=== PATIENT | female | born 1980 | race Caucasian/White ===

== ENCOUNTER 2022-05-18 00:34 | Emergency (ER) | payer OTHER, SELFPAY ==
[2022-05-18 00:32] VITALS: BP 116/85; PULSE 66; RESP 20; TEMP 35.7; O2SAT 100
--- NOTE | 2022-05-18 00:37 | ED.GENADULT ---
HPI - General Adult General Chief complaint: Syncope Stated complaint: SYNCOPE, ETOH, N/V History of Present Illness HPI narrative: 41-year-old female brought in by EMS. She was picked up at a local bar and noted to be on the bathroom floor in which she been having episodes of emesis. She appears to be highly intoxicated. There was a friend there who states that she had had several alcoholic drinks but was just drinking socially. She did not feel like she had drank enough to be at this level. Patient is able to arouse with us but not really answer many questions she just keeps stating I do not know what happened . She denies any physical trauma. Related Data Allergies Allergy/AdvReac Type Severity Reaction Status Date / Time No Known Allergies Allergy Verified 05/18/22 00:52 Review of Systems Review of Systems: ROS unobtainable: Yes other (Alcohol intoxication) [facility] Past Medical History Medical History No pertinent past medical history Family History Family History Father Hypertension Grandparent Family history of primary malignant neoplasm of liver Family history of heart disease in male family member before age 55 Social History Social History Smoking status: Never smoker Alcohol intake: current Exam Narrative: APPEARANCE: Strong smell of alcohol. Head Normocephalic and atraumatic. EYES: PERRLA/EOMI, conjunctivae clear. NOSE: Normal with no drainage EARS:TMS clear with Bales, with good light reflex. THROAT: Pharynx clear, no exudate. NECK: Supple. No adenopathy, no masses. RESPIRATORY: Airway patent, respirations nonlabored. Clear to auscultation bilaterally, no rales, rhonchi, wheezing. CARDIOVASCULAR: Regular rate and rhythm without murmurs, rubs, or gallops. ABDOMINAL: Soft, nontender, nondistended, no hepatosplenomegaly Musculoskeletal: Moves all extremities. Strength/ROM intact, No edema, No calf tenderness. NEURO: Nonfocal examination. SKIN:: Warm, dry. Normal Color PSYCHIATRIC: Depressed affect Course Vital Signs Vital signs: Vital Signs Temperature 96.3 F L 05/18/22 00:32 Pulse Rate 66 05/18/22 00:32 Respiratory Rate 20 05/18/22 00:32 Blood Pressure 116/85 05/18/22 00:32 Pulse Oximetry 100 05/18/22 00:32 Oxygen Delivery Room Air 05/18/22 00:32 Temperature 96.3 F L 05/18/22 00:32 Pulse Rate 67 05/18/22 01:15 Respiratory Rate 20 05/18/22 00:32 Blood Pressure 117/83 05/18/22 01:15 Pulse Oximetry 100 05/18/22 01:15 Oxygen Delivery Room Air 05/18/22 00:32 Medical Decision Making MDM Narrative Medical decision making narrative: Alcohol level came back at 220 mg/dL. Tox screen was noted to be negative. Patient's parents are here at this time. She is a lot more alert. She states that she did not feel like she drank that much alcohol tonight. She can safely be discharged at this time back to her home with her parents. I did explain to them that it we cannot test for drugs such as ketamine. However she states that she would not around any men and there was no man there hitting on her. Vital Signs Vital Signs: Vital Signs Temperature 96.3 F L 05/18/22 00:32 Pulse Rate 66 05/18/22 00:32 Respiratory Rate 20 05/18/22 00:32 Blood Pressure 116/85 05/18/22 00:32 Pulse Oximetry 100 05/18/22 00:32 Oxygen Delivery Room Air 05/18/22 00:32 Temperature 96.3 F L 05/18/22 00:32 Pulse Rate 67 05/18/22 01:15 Respiratory Rate 20 05/18/22 00:32 Blood Pressure 117/83 05/18/22 01:15 Pulse Oximetry 100 05/18/22 01:15 Oxygen Delivery Room Air 05/18/22 00:32 Lab Data Labs: Lab Results 05/18/22 05/18/22 Range/Units 00:49 00:49 Urine Opiates Screen Negative (Negative) Urine Methadone Screen Negative (Negative) Ur Barbiturates Screen N
[2022-05-18] MEDS: SODIUM CHLORIDE 0.9% IV 1,000 ML 999 ML IV CONT (00:54)
[2022-05-18 01:08] LABS: Ethanol 220 mg/dL (<10)
[2022-05-18 01:15] VITALS: BP 117/83; PULSE 67; O2SAT 100
[2022-05-18 01:15] LABS: Amphetamine Screen Urine Negative (Negative); Barbiturate Screen Urine Negative (Negative); Benzodiazepines Screen Urine Negative (Negative); Cannabinoid Screen Urine Negative (Negative); Cocaine Screen Urine Negative (Negative); Methadone Screen Urine Negative (Negative); Opiate Screen Urine Negative (Negative); Phencyclidine Screen Urine Negative (Negative)
[2022-05-18 01:53] VITALS: BP 120/83; PULSE 70; RESP 20; O2SAT 99
== END 2022-05-18 01:56 | disposition home or self-care (01) ==
PROVIDERS: Emergency Provider Emergency Medicine
DX: F10.129 Alcohol abuse with intoxication, unspecified (principal); Y90.7 Blood alcohol level of 200-239 mg/100 ml
CPT/HCPCS: 36415; 80307; 96360; 99283; J7030

== ENCOUNTER 2022-09-24 16:01 | Emergency (ER) | payer OTHER, SELFPAY ==
[2022-09-24 16:31] VITALS: BP 113/66; PULSE 89; RESP 18; TEMP 36.8; O2SAT 100
[2022-09-24 16:32] VITALS: BP 113/66; PULSE 89; RESP 18; TEMP 36.8; O2SAT 100
--- NOTE | 2022-09-24 16:47 | ED.URI ---
HPI - URI/Sore Throat General Chief Complaint: Upper Respiratory Infection Stated Complaint: sorethroat,headache Time Seen by Provider: 09/24/22 16:47 Source: patient and RN notes reviewed Mode of arrival: ambulatory Limitations: no limitations History of Present Illness HPI Narrative: 42-year-old female presented for complaint sore throat, body aches, subjective fever over the last 3 days. 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 She states she had influenza at the end of August. She also states the symptoms are similar to when she has had strep throat in the past. She denies shortness of breath, wheezing, nausea vomiting, diarrhea. She has taken Tylenol for symptoms. MD elicited complaint: cough Related Data Home Medications Medication Instructions Recorded Confirmed escitalopram oxalate 10 mg tablet 10 mg PO DAILY 09/24/22 09/24/22 gabapentin 100 mg capsule 100 mg PO DAILY 09/24/22 09/24/22 linaclotide 145 mcg capsule 145 mcg PO DAILY 09/24/22 09/24/22 (Linzess) rimegepant 75 mg disintegrating 75 mg PO PRN PRN Migraine Headache 09/24/22 09/24/22 tablet (Nurtec ODT) Allergies Allergy/AdvReac Type Severity Reaction Status Date / Time No Known Allergies Allergy Verified 09/24/22 16:31 Review of Systems Review of Systems: ROS per HPI [facility] Past Medical History Medical History No pertinent past medical history Family History Family History Father Hypertension Grandparent Family history of primary malignant neoplasm of liver Family history of heart disease in male family member before age 55 Social History Social History Smoking status: Never smoker Alcohol intake: current Exam Narrative: GENERAL: Ill-appearing EYES: PERRLA, conjunctivae clear ENT: Mucous membranes moist. TMs pearly [place] with dull light reflex bilaterally; no tragal tenderness. Oropharynx erythematous without. no drooling, no hoarseness, no trismus, uvula midline. No tripod positioning, muffled voice, soft palate or pharyngeal wall bulging NECK: Supple. No lymphadenopathy CHEST: Clear to auscultation, breath sounds equal. HEART: Regular rate and rhythm. No murmur heard. SKIN: Warm, dry, no rash. NEURO: Alert and oriented x3. PSYCH: Normal mood and affect Course Course Emergency Course: Patient is aware of diagnosis, understands and agrees to treatment plan. Anticipatory guidance given. Patient agrees to follow-up as directed and is aware of reasons to seek care at the emergency department. Portions of this record may have been created with voice recognition software Level of Care: Express Care Visit Vital Signs Vital signs: Vital Signs Temperature 98.2 F 09/24/22 16:31 Pulse Rate 89 09/24/22 16:31 Respiratory Rate 18 09/24/22 16:31 Blood Pressure 113/66 09/24/22 16:31 Pulse Oximetry 100 09/24/22 16:31 Oxygen Delivery Room Air 09/24/22 16:31 Temperature 98.2 F 09/24/22 16:32 Pulse Rate 89 09/24/22 16:32 Respiratory Rate 18 09/24/22 16:32 Blood Pressure 113/66 09/24/22 16:32 Pulse Oximetry 100 09/24/22 16:32 Oxygen Delivery Room Air 09/24/22 16:32 reviewed MDM - URI/Sore Throat MDM Narrative Medical decision making narrative: Due to lack of resources, unable to test for rapid strep at this time. Will treated based on PE, known exposure, and CC. Patient verbalizes understanding. Due to shortage of amox will send Zpack. Advised supportive measures and signs and symptoms to go to the ER. Patient is appropriate for outpatient treatment and follow-up. Differential Diagnosis Differential diagnosis: Likely upper respiratory infection, sinusitis and viral infection Discharge Plan Discharge Clinical Impression: Pharyngitis Patient Disposition: H
== END 2022-09-24 17:00 | disposition home or self-care (01) ==
PROVIDERS: Emergency Provider Nurse Practitioner Family; PCP Nurse Practitioner Family
DX: J02.9 Acute pharyngitis, unspecified (principal); R51.9 Headache, unspecified
CPT/HCPCS: 99213; G0463

== ENCOUNTER → 2023-10-03 13:02 | Outpatient (CLI) | payer OTHER, SELFPAY ==
--- NOTE | ~2023-10-03 | XR_ITS ---
XR wrist RT 2V 10/03/2023 14:07 Indication: Polyarticular arthralgias Procedure: 2 views right wrist Comparison: No prior studies for comparison. Findings: There is anatomic alignment. No fracture, subluxation or dislocation. No significant soft t issue abnormality. No erosive changes. Impression: 1: No significant bone or joint abnormality. Reviewed, dictated and finalized at location A. MIZATION ANALYST Impression: 1: No significant bone or joint abnormality.
--- NOTE | ~2023-10-03 | XR_ITS ---
XR wrist LT 2V 10/03/2023 14:07 Indication: Polyarticular arthralgias Procedure: 2 views left wrist Comparison: No prior studies for comparison. Findings: There is anatomic alignment. No fracture, subluxation or dislocation. No significant soft t issue abnormality. No erosive changes. Impression: 1: No significant bone or joint abnormality. Reviewed, dictated and finalized at location A. STANT PROFESSOR OF RADIOLOGY Impression: 1: No significant bone or joint abnormality.
--- NOTE | ~2023-10-03 | XR_ITS ---
XR hand LT 2V 10/03/2023 14:08 Indication: Polyarticular arthralgias Procedure: 2 views left hand Comparison: No prior studies for comparison. Findings: There is anatomic alignment. No fracture, subluxation or dislocation. No significant soft t issue abnormality. No erosive changes. Impression: 1: No significant bone or joint abnormality. Reviewed, dictated and finalized at location A. GROUND INVESTIGATOR Impression: 1: No significant bone or joint abnormality.
--- NOTE | ~2023-10-03 | XR_ITS ---
XR foot RT 2V 10/03/2023 14:08 Indication: Polyarticular arthralgias Procedure: 2 views right foot Comparison: No prior studies for comparison. Findings: There is anatomic alignment. No fracture, subluxation or dislocation. No significant soft t issue abnormality. No erosive changes. Impression: 1: No significant bone or joint abnormality. Reviewed, dictated and finalized at location A. TY SCIENTIST Impression: 1: No significant bone or joint abnormality.
--- NOTE | ~2023-10-03 | XR_ITS ---
XR hand RT 2V 10/03/2023 14:08 Indication: Polyarticular arthralgias Procedure: 2 views right hand Comparison: No prior studies for comparison. Findings: There is anatomic alignment. No fracture, subluxation or dislocation. No significant soft t issue abnormality. No erosive changes. Impression: 1: No significant bone or joint abnormality. Reviewed, dictated and finalized at location A. ICAL CYTOGENETICS DIRECTOR Impression: 1: No significant bone or joint abnormality.
--- NOTE | ~2023-10-03 | XR_ITS ---
XR foot LT 2V 10/03/2023 14:08 Indication: Polyarticular arthralgias Procedure: 2 views left foot Comparison: No prior studies for comparison. Findings: There is anatomic alignment. No fracture, subluxation or dislocation. No significant soft t issue abnormality. No erosive changes. Impression: 1: No significant bone or joint abnormality. Reviewed, dictated and finalized at location A. MECHANIC HELPER Impression: 1: No significant bone or joint abnormality.
--- NOTE | ~2023-10-03 | XR_ITS ---
XR ankle RT 2V 10/03/2023 14:07 Indication: Polyarticular arthralgias Procedure: 2 views right ankle Comparison: No prior studies for comparison. Findings: There is anatomic alignment. No fracture, subluxation or dislocation. No significant soft t issue abnormality. No erosive changes. Impression: 1: No significant bone or joint abnormality. Reviewed, dictated and finalized at location A. TER CASE MANAGER Impression: 1: No significant bone or joint abnormality.
--- NOTE | ~2023-10-03 | XR_ITS ---
XR ankle LT 2V 10/03/2023 14:07 Indication: Polyarticular arthralgias Procedure: 2 views left ankle Comparison: No prior studies for comparison. Findings: There is anatomic alignment. No fracture, subluxation or dislocation. No significant soft t issue abnormality. No erosive changes. Impression: 1: No significant bone or joint abnormality. Reviewed, dictated and finalized at location A. GENERATION REPRESENTATIVE Impression: 1: No significant bone or joint abnormality.
--- NOTE | ~2023-10-03 | XR_ITS ---
XR sacroiliac joints min 3V 10/03/2023 14:07 Indication: Polyarticular arthralgias Procedure: 4 views sacroiliac joints Comparison: No prior studies for comparison. Findings: There is anatomic alignment. Mild symmetric degenerative change of the sacroiliac joints. N o fracture, subluxation or dislocation. No significant soft tissue abnormality. No erosive changes. 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 Reviewed, dictated and finalized at location A. 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
== END ==
PROVIDERS: PCP Nurse Practitioner Family
DX: M25.50 Pain in unspecified joint (principal); R53.81 Other malaise; M79.10 Myalgia, unspecified site
CPT/HCPCS: 72202; 73100; 73120; 73600; 73620